=== PATIENT | male | born 1955 | race Caucasian/White ===

== ENCOUNTER 2021-03-20 11:17 | Outpatient (CLI) | payer MEDICARE, OTHER, SELFPAY ==
--- NOTE | ~2021-03-20 | XR_ITS ---
EXAMINATION: XR shoulder RT min 2V DATE: 03/20/2021 12:20 INDICATION: Right shoulder pain. TECHNIQUE: 4 views of right shoulder were obtained. COMPARISON: None. FINDINGS: Bone alignment is normal. No fracture. Joint is normal. There is mild osteoarthritis of gle nohumeral and acromioclavicular joints. There are airspace opacities in peripheral right mid and lowe r lung zones. IMPRESSION: 1. Mild polyarticular osteoarthritis. 2. Airspace opacities in peripheral right mid and lower lung zones, consistent with atelectasis versu s pneumonia. Reviewed, dictated and finalized at location A. TESTER IMPRESSION: 1. Mild polyarticular osteoarthritis. 2. Airspace opacities in peripheral right mid and lower lung zones, consistent with atelectasis versus pneumonia.
== END 2021-03-20 11:18 | disposition home or self-care (01) ==
PROVIDERS: PCP Family Medicine
DX: M19.011 Primary osteoarthritis, right shoulder (principal); R91.8 Other nonspecific abnormal finding of lung field
CPT/HCPCS: 73030